=== PATIENT | female | born 1980 | race Caucasian/White ===

== ENCOUNTER 2022-09-10 23:44 | Inpatient (IN) | payer OTHER ==
[~2022-09-10] VITALS: Ht 172.7 cm; Wt 68.9 kg
--- NOTE | 2022-09-10 23:52 | NUR ---
PT BIBRA C/O FEVER SINCE THIS EVENING. PT NON VERBAL, HOT TO THE TOUCH, AND ON 2L O2 VIA NC. 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 PT HAS G TUBELEFT INDEX FINGER 22G IV INITIATED BY [facility]. PT ATTACHED TO MONITOR AND POX. WILL CONTINUE TO MONITOR.
--- NOTE | 2022-09-10 23:56 | NUR ---
COVID ANTIGEN SWAB COLLECTED AND SENT TO LAB
--- NOTE | 2022-09-10 23:56 | NUR ---
blood drawn and sent to lab
--- NOTE | 2022-09-10 23:56 | NUR ---
EMT AT PT'S BEDSIDE FOR EKG
--- NOTE | 2022-09-11 00:04 | NUR ---
DIATHERMY EQUIPMENT REPAIRER AT PT'S BEDSIDE
--- NOTE | 2022-09-11 00:05 | NUR ---
xray at bed side
[2022-09-11] MEDS ORDERED: ACETAMINOPHEN 650 MG/SUPP.RECT RC ONE ×2 (00:09→00:30)
--- NOTE | 2022-09-11 00:18 | NUR ---
URINE COLLECTED AND SENT TO LAB
[2022-09-11 00:26] LABS: BASOPHILS % (AUTO) 0.2 % (0.0-2.0); EOSINOPHILS % (AUTO) 2.3 % (0.0-6.0); HEMATOCRIT 36 % (33-45); HEMOGLOBIN 10.6 g/dL (11.5-14.8); LYMPHOCYTES # (AUTO) 3.5 K/uL (0.8-4.8); LYMPHOCYTES % (AUTO) 17.8 % (20.0-44.0); MEAN CORPUSCULAR HGB CONC 30 g/dl (31.0-36.0); MEAN CORPUSCULAR VOLUME 95 fL (82-100); MONOCYTES # (AUTO) 1.7 K/uL (0.1-1.30); MONOCYTES % (AUTO) 8.6 % (2.0-12.0); NEUTROPHILS # (AUTO) 13.9 K/uL (1.8-8.9); NEUTROPHILS % (AUTO) 71.1 % (43.0-81.0); PLATELET COUNT (AUTO) 173 K/uL (150-450); RED BLOOD CELL COUNT(AUTO) 3.75 MIL/uL (4.0-5.2); WHITE BLOOD COUNT (AUTO) 19.5 K/uL (4.3-11.0)
[2022-09-11] MEDS ORDERED: IV NS 0.9% 1,000 ML BAG IV ONE ×2 (00:30→02:00)
[2022-09-11 01:11] LABS: ALANINE AMINOTRANSFERASE 18 U/L (12-78); ALBUMIN 2.5 g/dL (3.4-5.0); ALKALINE PHOSPHATASE 184 U/L (46-116); ASPARTATE AMINOTRANSFERASE 18 U/L (15-37); BILIRUBIN,DIRECT 0.3 mg/dL (0.0-0.2); BILIRUBIN,TOTAL 0.5 mg/dL (0.2-1.0); CALCIUM, SERUM 9.1 mg/dL (8.5-10.1); CARBON DIOXIDE 29 mmol/L (21-32); CREATININE 1.4 mg/dL (0.6-1.3); GLUCOSE 126 mg/dL (74-106); TOTAL PROTEIN, SERUM 8.4 g/dL (6.4-8.2); UREA NITROGEN, BLOOD 64 mg/dL (7-18)
[2022-09-11 01:36] LABS: BILIRUBIN,URINE NEGATIVE (NEGATIVE); COLOR,URINE YELLOW (YELLOW); LEUKOCYTE ESTERASE ,URINE 2+ (NEGATIVE); NITRITE, URINE POSITIVE (NEGATIVE); PROTEIN,URINE 1+ mg/dl (NEGATIVE); UGLUCOSE NEGATIVE (NEGATIVE); UROBILINOGEN,URINE 0.2 EU/dL (0.2)
[2022-09-11 01:47] LABS: CHLORIDE 126 mmol/L (98-107)
[2022-09-11 01:48] LABS: SODIUM SERUM 163 mmol/L (136-145)
--- NOTE | 2022-09-11 01:48 | NUR ---
* CRITICAL LAB * SODIUM [address] TATO MACKENZIE AWARE & ORDERED IVF NS 1L;
[2022-09-11] MEDS ORDERED: CEFTRIAXONE 1GM BAG (ER ONLY) 50 ML IV ONE (01:57)
[2022-09-11] MEDS ORDERED: CEFTRIAXONE 1GM BAG (ER ONLY) 1 GM/50 ML PIGGYBACK IV ONE (02:00)
[2022-09-11 02:47] LABS: BACTERIA,URINE Many /HPF (None Seen); SQUAMOUS EPITHELIAL CELL,UR Few /HPF (None Seen); WBC,URINE 21-50 /HPF (0-3)
--- NOTE | 2022-09-11 02:55 | NUR ---
DR GODWIN DO ON PHONE CALL WITH DR. IQBAL FOR PANEL CALL
--- NOTE | 2022-09-11 03:02 | NUR ---
SPOKE TO CONTRACTOR BROOMCORN THRESHING LINDA WITH AUTH NUMBER: [id number]
--- NOTE | 2022-09-11 03:03 | NUR ---
ASSIGMENT: 322-1
[2022-09-11] MEDS ORDERED: CHOL100040 GT (03:19)
[2022-09-11] MEDS ORDERED: BACL10TA GT (03:19)
[2022-09-11] MEDS ORDERED: VIT500LI GT (03:19)
[2022-09-11] MEDS ORDERED: SENN-261 GT (03:19)
[2022-09-11] MEDS ORDERED: PREG50CA GT (03:19)
[2022-09-11] MEDS ORDERED: MULT-447 GT (03:19)
[2022-09-11] MEDS ORDERED: DOCU100C36 GT (03:19)
--- NOTE | 2022-09-11 03:27 | NUR ---
REPORT GIVEN TO ANI ON THIRD FLOOR
--- NOTE | 2022-09-11 03:31 | NUR ---
PT TRANSFERRED TO 322-1 VIA ACLS PROTOCOL. VSS.
--- NOTE | 2022-09-11 03:40 | NUR ---
FORENSIC PATHOLOGIST NOTES RECEIVED PATIENT FROM ER AT 0340 AM. PATIENT IS NON VERBAL. A/O TIMES 0. NO PAIN NOTED. NO SOB NOTED. NO DISTRESS NOTED. PATIENT IS PARAPLEGIC. UPPER EXTREMITIES NOTED WITH CONTRACTURE. PATIENT ON TELE MONITOR READING SR 109. VITAL SIGNS NOTED 111/64, P=110, RR=20, T=98.1 NO SOB NOTED. NO DISTRESS NOTED. ON O2 INHALATION VIA NASAL CANNULA , O2 SAT NOTED 97%. GTUBE INTACT. AWAITING FOR MD TO PUT THE ORDERS. OVERALL SKIN INTACT. NOTED RIGHT ELBOW SCAB. ALL NEEDS ATTENDED. ALL SAFETY MEASURES IN PLACE. BED LOCKED IN THE LOWEST POSITION. CALL LIGHT AND TABLE IN EASY REACH. SIDE RAILS UP TIMES 2. B3ED ALARM ON. HOB ELEVATED FOR ASPIRATION PRECAUTION. WILL CONTINUE TO MONITOR CLOSELY.
[2022-09-11 04:30] LABS: BAND % (MANUAL) 1 % (0.0-5.0); BASOPHILS % (MANUAL) 0 % (0.0-2.0); EOSINOPHILS % (MANUAL) 2 % (0-4); LYMPHOCYTES % (MANUAL) 18 % (16-48); MONOCYTES % (MANUAL) 6 % (0-11.0); NEUTROPHILS % (MANUAL) 73 (42-76)
[2022-09-11] MEDS ORDERED: MAG HYDROX/AL HYDROX/SIMETH 30 ML UDC PO PRN (04:30)
[2022-09-11] MEDS ORDERED: MAGNESIUM HYDROXIDE 30 ML UDC PO PRN (04:30)
[2022-09-11] MEDS ORDERED: ACETAMINOPHEN 325 MG TABLET PO PRN (04:30)
[2022-09-11] MEDS ORDERED: ONDANSETRON HCL/PF 4 MG/2 ML VIAL IVP PRN (04:30)
[2022-09-11] MEDS ORDERED: Z GUARD REMEDY 4 OZ OINT TP PRN (04:30)
[2022-09-11] MEDS ORDERED: MORPHINE SULFATE INJ 2 MG/ML DISP.SYRIN IV PRN (04:30)
[2022-09-11] MEDS ORDERED: VANCOMYCIN 1.25 GM in IV D5W 250 ML IV ONE ×2 (05:00→07:00)
[2022-09-11] MEDS ORDERED: ZOSYN IVPB 3.375 G in IV D5W 50ml IV ONE (05:00)
[2022-09-11] MEDS: IV D5W 1,000 ML IV SCH ×2 (05:16→15:09)
[2022-09-11] MEDS ORDERED: PIPERACILLIN /TAZOBACTAM 3.375 G VIAL IV ONE (05:27)
[2022-09-11 06:27] VITALS: BP 111/64
--- NOTE | 2022-09-11 06:30 | NUR ---
INSURANCE CLAIM REPRESENTATIVE CLOSING NOTES PATIENT SLEEPS IN BED. PATIENT IS NON VERBAL. A/O TIMES 0. NO PAIN NOTED. NO SOB NOTED. NO DISTRESS NOTED. PATIENT IS PARAPLEGIC. UPPER EXTREMITIES NOTED WITH CONTRACTURE. PATIENT ON TELE MONITOR READING ST 105. NO DISTRESS NOTED. ON O2 INHALATION VIA NASAL CANNULA , O2 SAT NOTED 96%. GTUBE INTACT. NO G- TUBE FEEDING ORDER YET. OVERALL SKIN INTACT. NOTED RIGHT ELBOW SCAB. ALL NEEDS ATTENDED. ALL SAFETY MEASURES IN PLACE. BED LOCKED IN THE LOWEST POSITION. CALL LIGHT AND TABLE IN EASY REACH. SIDE RAILS UP TIMES 2. BED ALARM ON. HOB ELEVATED FOR ASPIRATION PRECAUTION. WILL ENDORSE FOR NIKKO..
--- NOTE | 2022-09-11 06:47 | NUR ---
RN NOTES CALLED [facility] SPOKE WITH HELADIO AND GOT INFORMATION REGARDING PATIENT VACCINATIONS FROM HER.
[2022-09-11] MEDS ORDERED: VANCOMYCIN 1.5 GM in IV D5W 500 ML IV ONE (07:00)
--- NOTE | 2022-09-11 07:30 | NUR ---
HEAD WELL PULLER NOTES RECEIVED PATIENT IN BED , OBTUNDED , PATIENT IS NON VERBAL. A/O TIMES 0 . PATIENT IS PARAPLEGIC. UPPER EXTREMITIES NOTED WITH CONTRACTURE. PATIENT ON TELE MONITOR READING SR 109. NO SOB NOTED. NO DISTRESS NOTED. ON O2 INHALATION VIA NASAL CANNULA , O2 SAT NOTED 97%. GTUBE INTACT. AWAITING FOR NEW ORDERS . OVERALL SKIN INTACT. NOTED RIGHT ELBOW SCAB. . ALL SAFETY MEASURES IN PLACE. BED LOCKED IN THE LOWEST POSITION. CALL LIGHT AND TABLE IN EASY REACH. SIDE RAILS UP TIMES 2. B3ED ALARM ON. HOB ELEVATED FOR ASPIRATION PRECAUTION. WILL CONTINUE TO MONITOR CLOSELY.
[2022-09-11 08:00] VITALS: BP 119/65
--- NOTE | 2022-09-11 08:00 | NUR ---
RN NOTES WITH ORDER FOR MIDLINE INSERTION AND MIDLINE NURSE INSERTED WITH NO BLEEDING AND SWELLING NOTED . PATENT AND INTACT
--- NOTE | 2022-09-11 08:21 | NUR ---
WOUND CARE CONSULT: PT PRESENTS WITH LARGE ABDOMEN, RT ELBOW AND SACRAL SCARRING, PRESENT ON ADMISSION. RECOMMENDATIONS MADE FOR SKIN PROTECTION. DISCUSSED WITH NURSING STAFF. PT IS ON [facility] BED. IN AGREEMENT WITH PLAN OF CARE. Addendum: 09/11/22 at 0822 by LYNDA DELEON WNDNU Amended: Links added.
[2022-09-11] MEDS: PIPERACILLIN /TAZOBACTAM 3.375 G in IV D5W 100 ML IV SCH ×2 (10:28→18:01)
[2022-09-11] MEDS ORDERED: DEXTROSE 50%-WATER 50 ML DISP.SYRIN IV PRN (11:30)
[2022-09-11 12:00] VITALS: BP 101/42
[2022-09-11] MEDS ORDERED: MAG HYDROX/AL HYDROX/SIMETH 30 ML UDC NG PRN (12:24)
[2022-09-11] MEDS ORDERED: MAGNESIUM HYDROXIDE 30 ML UDC NG PRN (12:25)
[2022-09-11] MEDS ORDERED: ACETAMINOPHEN 650 MG/20.3 ML UDC PO PRN (12:30)
[2022-09-11] MEDS: ACETAMINOPHEN 650 MG/20.3 ML UDC NG PRN ×2 (12:52→21:06)
--- NOTE | 2022-09-11 13:00 | NUR ---
RN NOTES PATIENT NOTED WITH HR OF 162 AND V/S TAKEN TEMP WAS 101.5 AND BP 119/65 . NO SOB OR DISTRESS NOTED ,TYLENOL WAS GIVEN 650 MG VIA GT
[2022-09-11] MEDS: BLOOD SUGAR DIAGNOSTIC 1 EACH STRIP IN SCH ×3 (13:02→23:15)
[2022-09-11] MEDS: INSULIN REGULAR, HUMAN 100 UNIT/ML 3 ML VIAL SQ PRN ×3 (13:40→23:17)
[2022-09-11] MEDS ORDERED: JEVITY 1.2 CAL 1,000 ML BOTTLE GT PRN ×2 (14:00→16:00)
[2022-09-11] MEDS ORDERED: ACET-868 GT (14:45)
[2022-09-11] MEDS ORDERED: PROM118S5 GT (14:45)
[2022-09-11] MEDS ORDERED: NUTR150016 GT (14:45)
[2022-09-11 16:00] VITALS: BP 104/55
[2022-09-11] MEDS ORDERED: JEVITY 1.2 CAL 1,000 ML BOTTLE GT SCH (18:29)
--- NOTE | 2022-09-11 18:44 | NUR ---
LEATHER SCRAPER NOTES RECEIVED PATIENT IN BED , OBTUNDED , PATIENT IS NON VERBAL. A/O TIMES 0 . PATIENT IS PARAPLEGIC. UPPER EXTREMITIES NOTED WITH CONTRACTURE. PATIENT ON TELE MONITOR READING ST 112. NO SOB NOTED. NO DISTRESS NOTED. ON O2 INHALATION VIA NASAL CANNULA , O2 SAT NOTED 97%. GTUBE INTACT WITH JEVITY 1.2 @60 ML/H FOR 24 HOURS AND TOLERATED WELL . OVERALL SKIN INTACT. NOTED RIGHT ELBOW SCAB.APPLIED WITH MEPILEX . ROXANN MIDLINE AND WITH D5W @30ML/HOUR . ALL SAFETY MEASURES IN PLACE. BED LOCKED IN THE LOWEST POSITION. CALL LIGHT AND TABLE IN EASY REACH. SIDE RAILS UP TIMES 2. B3ED ALARM ON. HOB ELEVATED FOR ASPIRATION PRECAUTION. ENDORSED TO NEXT SHIFT
--- NOTE | 2022-09-11 19:30 | NUR ---
CAR LUBRICATOR OPENING NOTE RECEIVED PT AWAKE IN BED. OBTUNDED. PT ON O2 @ 2LPM VIA NC, TOLERATING WELL. NO SOB OR S/S OF RESPIRATORY DISTRESS. BREATHING EVEN AND UNLABORED. ON EXTERNAL TRANSIT MIXER DRIVER READING ST 117 BPM. WITH GTUBE RUNNING JEVITY 1.2 @ 60 ML/HR. IV ACCESS ROXANN ML, INTACT AND PATENT, RUNNING ZOSYN @ 25 ML/HR. SAFETY PRECAUTIONS IN PLACE. BED IN LOWEST LOCKED POSITION, HOB ELEVATED, SIDE RAILS UP X3, AND CALL LIGHT AND TABLE WITHIN REACH. ALL NEEDS MET AT THIS TIME.
[2022-09-11 20:00] VITALS: BP 107/59
[2022-09-11] MEDS ORDERED: VANCOMYCIN 1 GM in IV D5W 250 ML IV SCH (21:00)
--- NOTE | 2022-09-11 21:08 | NUR ---
RN NOTE PT NOTED WITH FEVER OF 101.6 AT THIS TIME. ADMINISTERED TYLENOL 650 MG VIA GTUBE ORDERED FOR FEVER. APPLIED COOLING MEASURES. ALL NEEDS MET AT THIS TIME.
--- NOTE | 2022-09-11 21:15 | NUR ---
RN NOTE PT NOTED TO STILL BE RUNNING ZOSYN @ 25 ML/HR. CALLED [facility] AND SPOKE WITH PEPE WHO STATED IT WAS OKAY TO RUN THE ZOSYN AND THE VANCO AT THE SAME TIME. CHARGE NURSE VERONICA ENGLISH.
[2022-09-12] VITALS: BP 111/55
[2022-09-12] MEDS: PIPERACILLIN /TAZOBACTAM 3.375 G in IV D5W 100 ML IV SCH ×3 (01:29→17:01)
[2022-09-12 04:00] VITALS: BP 107/73
[2022-09-12] MEDS: BLOOD SUGAR DIAGNOSTIC 1 EACH STRIP IN SCH ×3 (05:40→17:02)
[2022-09-12 06:37] LABS: BASOPHILS % (AUTO) 0.3 % (0.0-2.0); EOSINOPHILS % (AUTO) 2.3 % (0.0-6.0); HEMATOCRIT 30 % (33-45); HEMOGLOBIN 9.1 g/dL (11.5-14.8); LYMPHOCYTES # (AUTO) 1.9 K/uL (0.8-4.8); LYMPHOCYTES % (AUTO) 12.6 % (20.0-44.0); MEAN CORPUSCULAR HGB CONC 30 g/dl (31.0-36.0); MEAN CORPUSCULAR VOLUME 95 fL (82-100); MONOCYTES % (AUTO) 6.4 % (2.0-12.0); NEUTROPHILS # (AUTO) 11.8 K/uL (1.8-8.9); NEUTROPHILS % (AUTO) 78.4 % (43.0-81.0); PLATELET COUNT (AUTO) 175 K/uL (150-450); RED BLOOD CELL COUNT(AUTO) 3.18 MIL/uL (4.0-5.2)
--- NOTE | 2022-09-12 06:49 | NUR ---
FRONT OFFICE ADMINISTRATOR CLOSING NOTE PT AWAKE IN BED. OBTUNDED. PT ON O2 @ 2LPM VIA NC, TOLERATING WELL. NO SOB OR S/S OF RESPIRATORY DISTRESS. BREATHING EVEN AND UNLABORED. ON EXTERNAL PIECER READING ST 123 BPM. WITH GTUBE RUNNING JEVITY 1.2 @ 60 ML/HR, NO RESIDUAL, FLUSHED WITH 200 CC Q6H. IV ACCESS ROXANN ML, INTACT AND PATENT, RUNNING D5W @ 30 ML/HR. ALL DUE MEDS GIVEN ORDERED. KEPT CLEAN AND DRY. SAFETY PRECAUTIONS IN PLACE AT ALL TIMES. BED IN LOWEST LOCKED POSITION, HOB ELEVATED, SIDE RAILS UP X3, AND CALL LIGHT AND TABLE WITHIN REACH. ALL NEEDS MET AT THIS TIME AND WILL ENDORSE TO ONCOMING NURSE FOR NIKKO.
[2022-09-12 07:14] LABS: CALCIUM, SERUM 7.6 mg/dL (8.5-10.1); CREATININE 1.2 mg/dL (0.6-1.3); MAGNESIUM 2.8 mg/dL (1.8-2.4); PHOSPHORUS 4.3 mg/dL (2.5-4.9); POTASSIUM 3.8 mmol/L (3.5-5.1)
[2022-09-12 07:32] LABS: BILIRUBIN,DIRECT 0.3 mg/dL (0.0-0.2); BILIRUBIN,TOTAL 0.5 mg/dL (0.2-1.0); TOTAL PROTEIN, SERUM 6.8 g/dL (6.4-8.2)
--- NOTE | 2022-09-12 07:40 | NUR ---
MACHINE STUFFER AUTOMATIC OPENING NOTE RECEIVED PT AWAKE IN BED. OBTUNDED. PT ON O2 @ 2LPM VIA NC, TOLERATING WELL. NO SOB OR S/S OF RESPIRATORY DISTRESS. BREATHING EVEN AND UNLABORED. ON EXTERNAL SOLE STAINER READING ST 115 BPM. WITH GTUBE RUNNING JEVITY 1.2 @ 60 ML/HR. IV ACCESS ROXANN ML, INTACT AND PATENT, RUNNING D5W @ 30 ML/HR. SAFETY PRECAUTIONS IN PLACE. BED IN LOWEST LOCKED POSITION, HOB ELEVATED, SIDE RAILS UP X3, AND CALL LIGHT AND TABLE WITHIN REACH. WILL CONTINUE TO MONITOR.
[2022-09-12 08:00] VITALS: BP 104/62
[2022-09-12] MEDS: VANCOMYCIN 1 GM in IV D5W 250ml IV SCH ×2 (09:08→21:08)
[2022-09-12] MEDS ORDERED: GLUCERNA 1.2 1,000 ML BOTTLE NG PRN (09:30)
[2022-09-12 12:00] VITALS: BP_SYST 117; BP_SYST 140; BP_DIAS 67; BP_DIAS 77
[2022-09-12 12:09] LABS: BAND % (MANUAL) 10 % (0.0-5.0); EOSINOPHILS % (MANUAL) 1 % (0-4); LYMPHOCYTES % (MANUAL) 6 % (16-48); MONOCYTES % (MANUAL) 10 % (0-11.0); NEUTROPHILS % (MANUAL) 73 (42-76)
--- NOTE | 2022-09-12 13:45 | NUR ---
RN NOTE RECEIVED BLOOD CULTURE LAB RESULT @8187, GRAM POSITIVE, DR STEVENS AWARE. WILL CONTINUE TO MONITOR PT.
[2022-09-12 16:00] VITALS: BP 107/59
[2022-09-12] MEDS ORDERED: GLUCERNA 1.2 1,000 ML BOTTLE GT PRN (17:00)
--- NOTE | 2022-09-12 18:32 | NUR ---
DIGITAL IMAGER CLOSING NOTE PT AWAKE IN BED. OBTUNDED. PT ON O2 @ 2LPM VIA NC, TOLERATING WELL. NO SOB OR S/S OF RESPIRATORY DISTRESS. BREATHING EVEN AND UNLABORED. ON EXTERNAL LOCATION MANAGER READING ST 118 BPM. WITH GTUBE RUNNING GLUCERNA 1.2 @ 60 ML/HR, NO RESIDUAL, FLUSHED WITH 200 CC Q6H. IV ACCESS ROXANN ML, INTACT AND PATENT, RUNNING ZOSYN @25ML/HR. ALL DUE MEDS GIVEN ORDERED. KEPT PT CLEAN AND DRY. REPOSITIONED Q2H. SAFETY PRECAUTIONS IN PLACE AT ALL TIMES. BED IN LOWEST LOCKED POSITION, HOB ELEVATED, SIDE RAILS UP X3, AND CALL LIGHT AND TABLE WITHIN REACH. ALL NEEDS MET AT THIS TIME AND WILL ENDORSE TO ONCOMING NURSE FOR NIKKO.
--- NOTE | 2022-09-12 19:30 | NUR ---
RN NOTES: RECEIVED AWAKE ON BED,OBTUNDED,NON VERBAL, ON TELE MONITOR ST-123, NO SIGN OF PAIN OR DISCOMFORT AT THIS TIME, INCONTINENT B/B, WITH O2 AT 2L/MIN VIA NC, NO SIGN OF RESPIRATORY DISTRESS NOTED, KEPT ON CLOSE WATCH, IV CANNULA ON ROXANN-ML WITH IVF OF D5%W AT 30 ML/HR, G-TUBE INTACT, FEEDING ONGOING GLUCERNA 1.2 AT 60 ML/HR, ASPIRATION PRECAUTION OBSERVED, ON BS Q 6H,ON SLIDING SCALE, FLUSHING OF 200CC Q 6 HOURLY DUE AT 0000, SAFETY PRECAUTION OBSERVED, KEPT CALL LIGHT WITHIN EASY REACH, BED LOW AND LOCKED. -PER RN ENDORSEMENT (+) BLOOD C/S DOCTOR WAS NOTIFIED.
[2022-09-12 20:00] VITALS: BP 121/70
--- NOTE | 2022-09-12 21:33 | NUR ---
RN NOTES: AROUND 2119 SAW VANCO TROUGH RESULT=29, VANCO IV WAS STARTED AROUND 10 MINUTES AGO, INFUSION STOP IMMEDIATELY , CN NOTIFIED, THEN CALLED PHARMACY SPOKE WITH PEPE, ORDERED TO DO VANCO TROUGH AGAIN AT 0800 JUST TO CLEAR OUT THE DOSE AND START A NEW ORDER FROM [facility] TO ADJUST THE DOSE AND FREQUENCY.
--- NOTE | 2022-09-12 21:55 | NUR ---
RN NOTES: WARM TO TOUCH, 1999-99.8, SPONGE BATH RENDERED. COOL DOWN. 2156 -RE-CHECK AGAIN STILL 99.8, NOTED WITH FACIAL GRIMACE DURING REPOSITIONING, PRN GIVEN.
[2022-09-12] MEDS: ACETAMINOPHEN 650 MG/20.3 ML UDC NG PRN (22:01)
--- NOTE | 2022-09-12 22:20 | NUR ---
RN NOTES; G-TUBE SITE CHECKED, ASPIRATE >60 ML, STOP FEEDING TEMPORARILY, CN NOTIFIED.KEPT ON HIGH FOWLERS POSITION. Addendum: 09/12/22 at 2223 by ROWAN WILDE RN ADDED NOTES; ST-122,WARM TO TOUCH, SPONGE BATH RENDERED.
[2022-09-13] VITALS: BP 105/62
[2022-09-13] MEDS: BLOOD SUGAR DIAGNOSTIC 1 EACH STRIP IN SCH ×5 (00:38→23:34)
--- NOTE | 2022-09-13 00:38 | NUR ---
RN NOTES: 0000-BLOOD SUGAR CHECKED-119, NO INSULIN PER SCALE, WILL CONTINUE TO MONITOR FOR ANY SIGN OF HYPER/HYPOGLYCEMIA 0010-SHE PEE LARGE AMOUNT OF URINE, REPOSITION, CLEAN AND CHANGE, DRESSING DONE ON G-TUBE SITE AND SACRAL AREA, DRESSING CHANGE. 0020-CHECK G-TUBE PATENCY, ASPIRATE 50ML, FEEDING STILL ON HOLD, GENTLE HYDRATION GIVEN 200 ML OF FLUSHING, GIVEN WITH INTERVALS, KEPT IN HIGH FOWLERS POSITION, ASPIRATION PRECAUTION OBSERVED, TOLERATED.
[2022-09-13] MEDS: PIPERACILLIN /TAZOBACTAM 3.375 G in IV D5W 100 ML IV SCH ×3 (02:50→17:14)
[2022-09-13 04:00] VITALS: BP 122/66
--- NOTE | 2022-09-13 04:06 | NUR ---
RN NOTES: TURNING AND REPOSITIONING DONE, CHECK RESIDUAL >50CC.
[2022-09-13 06:02] LABS: CALCIUM, SERUM 8.4 mg/dL (8.5-10.1); CREATININE 1.1 mg/dL (0.6-1.3); POTASSIUM 4.3 mmol/L (3.5-5.1)
--- NOTE | 2022-09-13 07:29 | NUR ---
RESAW OPERATOR OPENING NOTE RECEIVED PT WITH OPEN EYES, NON-VERBAL, OBTUNDED. PT IS ON O2 AT 2L/MIN VIA NASAL CANNULA, TOLERATING WELL. NO SOB NOTED. NOT IN ANY SIGN OF RESPIRATORY DISTRESS. ON TELE COMMERCIAL INTELLIGENCE MANAGER WITH CURRENT READING OF SINUS TACH, HR 113. NO SIGNS CARDIAC DISTRESS NOTED AT THIS TIME. IV ACCESS ON ROXANN MIDLINE WITH D5W INFUSING AT 30ML/HR. SAFETY MEASURES IN PLACE: BED IN LOWEST AND LOCKED POSITION, KEPT HOB ELEVATED AT ALL TIMES, SIDE RAILS UP X2, AND CALL LIGHT WITHIN REACH. WILL CONTINUE TO MONITOR PT.
--- NOTE | 2022-09-13 07:49 | NUR ---
RN NOTES: RESIDUAL MORE >50 ML, FLUSHING OF 200 ML GIVEN SLOWLY AND GENTLY TOLERATED, KEPT IN HIGH FOWLERS POSITION, BLOOD SUGAR CHECK-99,IVF OF D5% AT 30 ML/HR CONTINUE, FOR VANCO TROUGH AND BMP THIS MORNING, ASPIRATION PRECAUTION OBSERVED, ENDORSED FOR CONTINUITY OF CARE.
[2022-09-13 08:00] VITALS: BP 105/65
[2022-09-13] MEDS: INSULIN REGULAR, HUMAN 100 UNIT/ML 3 ML VIAL SQ PRN ×3 (12:19→23:35)
[2022-09-13 16:00] VITALS: BP 120/65
[2022-09-13] MEDS: IV D5W 1,000 ML IV PRN (17:43)
[2022-09-13] MEDS: GLUCERNA 1.2 1,000 ML BOTTLE NG PRN (17:43)
--- NOTE | 2022-09-13 19:07 | NUR ---
SPECIAL DIET COOK CLOSING NOTE PT WITH OPEN EYES, NON-VERBAL, OBTUNDED. PT IS ON O2 AT 2L/MIN VIA NASAL CANNULA, TOLERATING WELL. NO SOB NOTED. NOT IN ANY SIGN OF RESPIRATORY DISTRESS. ON TELE INTERNATIONAL ORGANIZER WITH CURRENT READING OF SINUS TACH, HR 110. NO SIGNS CARDIAC DISTRESS NOTED AT THIS TIME. IV ACCESS ON ROXANN MIDLINE WITH D5W INFUSING AT 30ML/HR. ALL NEEDS ATTENDED. KEPT CLEAN AND COMFORTABLE AT ALL TIMES. SAFETY MEASURES IN PLACE: BED IN LOWEST AND LOCKED POSITION, KEPT HOB ELEVATED AT ALL TIMES, SIDE RAILS UP X2, AND CALL LIGHT WITHIN REACH. WILL ENDORSE TO ACCESS CONTROL SPECIALIST NURSE FOR NIKKO.
[2022-09-13 20:00] VITALS: BP 106/72
--- NOTE | 2022-09-13 20:15 | NUR ---
RN OPENING NOTES PT WITH OPEN EYES, OBTUNDED. PT IS ON NASAL CANNULA WITH 2L O2, TOLERATING WELL WITH NO RESPIRATORY DISTRESS NOTED. PT GASTRIC TUBE IN PLACE, FEEDING WAS DISCONTINUED DUE TO RESIDUAL OF >50ML. PT IV ACCESS ON ROXANN MIDLINE RUNNING D5W @ 30 ML/HR, PATENT, INTACT AND FLUSHES WELL WITH NO S/SX OF INFILTRATION 2 SITE NOTED. PT HAS EXTERNAL CUPOLA OPERATOR INSULATION IN PLACE. SAFETY MEASURES IN PLACE. BED PLACE IN ITS LOWEST AND LOCKED POSITION, SIDE RAILS UP X 2, BEDSIDE TABLE AND CALL LIGHT IS EASY REACH. BED ALARM IS ON. WILL CONTINUE TO MONITOR PATIENT ACCORDINGLY. Addendum: 09/13/22 at 2016 by BRIGIDA PHILLIPS RN OPENING NOTES @1900
[2022-09-13 20:19] VITALS: BP 106/72
[2022-09-13] MEDS: VANCOMYCIN 1 GM in IV D5W 250ml IV SCH (21:17)
--- NOTE | 2022-09-13 21:53 | NUR ---
GT IS IN PLACE WITH RESIDUAL OF >50ML. GT FEEDING HELD. CHARGE NURSE ON DUTY IS INFORMED AND NOTIFIED.
--- NOTE | 2022-09-13 23:27 | NUR ---
FEEDING RESUME @ 20 MLS/HR. CHARGE NURSE ON DUTY INFORMED AND NOTIFIED. WILL CONTINUE TO MONITOR PATIENT.
[2022-09-14] VITALS (7 sets, daily range): BP systolic 92–112; BP diastolic 60–72
[2022-09-14] MEDS: PIPERACILLIN /TAZOBACTAM 3.375 G in IV D5W 100 ML IV SCH ×3 (04:14→18:33)
[2022-09-14 06:32] LABS: CALCIUM, SERUM 8.7 mg/dL (8.5-10.1); POTASSIUM 3.6 mmol/L (3.5-5.1)
[2022-09-14] MEDS: INSULIN REGULAR, HUMAN 100 UNIT/ML 3 ML VIAL SQ PRN ×4 (06:46→23:39)
[2022-09-14] MEDS: BLOOD SUGAR DIAGNOSTIC 1 EACH STRIP IN SCH ×4 (06:46→23:39)
--- NOTE | 2022-09-14 06:47 | NUR ---
INSULIN REGULAR HELD D/T BLODD GLUCOSE OF 109.
--- NOTE | 2022-09-14 07:30 | NUR ---
SURGICAL SALES REPRESENTATIVE OPENING NOTE RECEIVED PT WITH OPEN EYES, NON-VERBAL, OBTUNDED. PT IS ON O2 AT 2L/MIN VIA NASAL CANNULA, TOLERATING WELL. NO SOB NOTED. NOT IN ANY SIGN OF RESPIRATORY DISTRESS. ON TELE STUFFING MACHINE OPERATOR WITH CURRENT READING OF SINUS RHYTHM, HR 96. NO SIGNS CARDIAC DISTRESS NOTED AT THIS TIME. IV ACCESS ON ROXANN MIDLINE WITH D5W INFUSING AT 30ML/HR. GTUBE IN PLACE WITH FEEDING RUNNING. SAFETY MEASURES IN PLACE: BED IN LOWEST AND LOCKED POSITION, KEPT HOB ELEVATED AT ALL TIMES, SIDE RAILS UP X2, AND CALL LIGHT WITHIN REACH. WILL CONTINUE TO MONITOR PT.
--- NOTE | 2022-09-14 07:40 | NUR ---
RN CLOSING NOTES PT IS SLEEPING COMFORTABLY IN BED. PT IS OBTUNDED. NO S/SX OF RESPIRATORY DISTRESS NOTED. ON TELEMONITOR WITH CURRENT READING OF SINUS RHYTHM HR OF 93. IV SITE ON ROXANN ML #20G RUNNING D5w @ 30 MLS/HR, INTACT, PATENT AND FLUSHES WELL WITH NO S/SX OF INFILTRATION. PT GTUBE IS IN PLACE RUNNING FEEDING OF GLUCERNA @ 20 MLS/HR. PT IS KEPT CLEAN, DRY AND COMFORTABLE. MEDICATIONS ADMINISTERED ACCORDINGLY PER MD'S ORDER. SAFETY MEASURES MAINTAINED. BEDS AT ITS LOWEST AND LOCKED POSITION. SIDE RAILS UP X 3. BEDSIDE TABLE AND CALL LIGHT IS EASY REACH, BED ALARM IS ON. WILL ENDORSE TO THE NEXT SHIFT FOR CONTINUITY OF CARE.
--- NOTE | 2022-09-14 16:39 | NUR ---
RN NOTE ASSESSED PT'S RESIDUAL VIA GTUBE AND NOTED PT WITH 140 CC RESIDUAL. GTUBE FEEDING HELD AT THIS TIME. KEPT PT'S HOB ELEVATED AT ALL TIMES. CALLED ANTOINE STEVENS NP AND MADE HIM AWARE THAT PT HAS BEEN HAVING EPISODES OF RESIDUAL OVER 100CC SINCE YESTERDAY. PER ANTOINE TO START PT ON REGLAN 10MG IV Q6HRS PRN. ORDERS CARRIED OUT.
[2022-09-14] MEDS: METOCLOPRAMIDE HCL 10 MG/2 ML VIAL IV SCH ×2 (18:32→23:17)
--- NOTE | 2022-09-14 19:00 | NUR ---
RN OPENING NOTES PT EYES OPEN. PT IS OBTUNDED. PT PT ON 02 INHALATION VIA NASAL CANNULA @2LPM, TOLERATING WELL, BREATHING EVEN AND UNLABORED. @ THIS TIME. PT IV ACCESS PRESENT ON RIGHT UPPER ARM MIDLINE RUNNING D5w @ 30 MLS/HR, PATENT, INTACT, FLUSHES WELL WITH NO S & SX OF INFILTRATION @ SITE NOTED. PT GTUBE IN PLACE RUNNING GLUCERNA @ 20 MLS/HR. PT HAS A DIRECTOR OF ONLINE EDUCATION IN PLACE WITH A CURRENT READING OF SINUS TACHYCARDIA, HR OF 119 BPM. SAFETY MEASURES IN PLACE WITH BED AT ITS LOWEST & LOCKED POSITION, SIDE RAILS UP X 2, BEDSIDE TABLE & CALL LIGHT IS EASY REACH. BED ALARM IS ON. WILL CONTINUE TO MONITOR PT ACCORDINGLY.
--- NOTE | 2022-09-14 19:30 | NUR ---
TECHNICAL SPECIALIST CYTOLOGY CLOSING NOTE PT WITH OPEN EYES, NON-VERBAL, OBTUNDED. PT IS ON O2 AT 2L/MIN VIA NASAL CANNULA, TOLERATING WELL. NO SOB NOTED. NOT IN ANY SIGN OF RESPIRATORY DISTRESS. ON TELE COMPUTER EDUCATION TEACHER WITH CURRENT READING OF SINUS RHYTHM, HR 98. NO SIGNS CARDIAC DISTRESS NOTED AT THIS TIME. IV ACCESS ON ROXANN MIDLINE WITH D5W INFUSING AT 30ML/HR. ALL NEEDS ATTENDED. KEPT CLEAN AND COMFORTABLE AT ALL TIMES. SAFETY MEASURES IN PLACE: BED IN LOWEST AND LOCKED POSITION, KEPT HOB ELEVATED AT ALL TIMES, SIDE RAILS UP X2, AND CALL LIGHT WITHIN REACH. ENDORSED TO STEEL BARREL REAMER NURSE FOR NIKKO.
[2022-09-14] MEDS: VANCOMYCIN 1 GM in IV D5W 250ml IV SCH (20:38)
--- NOTE | 2022-09-14 23:40 | NUR ---
INSULIN REGULAR HELD D/T TO BLOOD GLUCOSE OF 111.
--- NOTE | 2022-09-14 23:41 | NUR ---
CHANGE WOUND DRESSING @ LEFT ELBOW WITH ZEROFORM AND OPTIFOAM PATCH. Addendum: 09/14/22 at 1785 by BRIGIDA PHILLIPS RN ERROR ON WOUND LOCATION: CHANGE WOUND DRESSING ON RIGHT ELBOW USING ZEROFORM AND OPTIFOAM PATCH.
--- NOTE | 2022-09-14 23:45 | NUR ---
PHOTO TAKEN OF RIGHT ELBOW WOUND AND SACRAL SCAR. FILED PHOTO ON PT CHART
[2022-09-15] MEDS: PIPERACILLIN /TAZOBACTAM 3.375 G in IV D5W 100 ML IV SCH (01:00)
[2022-09-15 01:02] VITALS: BP 92/59
[2022-09-15 05:00] VITALS: BP 125/71
[2022-09-15] MEDS: METOCLOPRAMIDE HCL 10 MG/2 ML VIAL IV SCH ×4 (05:04→23:31)
[2022-09-15] MEDS: BLOOD SUGAR DIAGNOSTIC 1 EACH STRIP IN SCH ×4 (05:28→23:29)
[2022-09-15] MEDS: INSULIN REGULAR, HUMAN 100 UNIT/ML 3 ML VIAL SQ PRN (05:29)
--- NOTE | 2022-09-15 05:30 | NUR ---
INSULIN REGULAR HELD D/T BLOOD GLUCOSE OF 116.
[2022-09-15 05:57] LABS: BASOPHILS % (AUTO) 0.5 % (0.0-2.0); HEMATOCRIT 28 % (33-45); HEMOGLOBIN 8.6 g/dL (11.5-14.8); LYMPHOCYTES # (AUTO) 1.5 K/uL (0.8-4.8); LYMPHOCYTES % (AUTO) 18.5 % (20.0-44.0); MEAN CORPUSCULAR HGB CONC 31 g/dl (31.0-36.0); MEAN CORPUSCULAR VOLUME 93 fL (82-100); MONOCYTES # (AUTO) 0.7 K/uL (0.1-1.30); MONOCYTES % (AUTO) 8.9 % (2.0-12.0); NEUTROPHILS # (AUTO) 5.5 K/uL (1.8-8.9); NEUTROPHILS % (AUTO) 69.1 % (43.0-81.0); PLATELET COUNT (AUTO) 247 K/uL (150-450); RED BLOOD CELL COUNT(AUTO) 2.99 MIL/uL (4.0-5.2)
[2022-09-15 06:18] LABS: CALCIUM, SERUM 8.5 mg/dL (8.5-10.1); CREATININE 1.1 mg/dL (0.6-1.3); POTASSIUM 3.4 mmol/L (3.5-5.1)
--- NOTE | 2022-09-15 06:30 | NUR ---
RN CLOSING NOTES PT EYES IS OPEN. PT IS OBTUNDED. NO S & SX OF RESPIRATORY DISTRESS. PT ON 02 INHALATION VIA NASAL CANNULA O2 @2LPM, TOLERATING WELL, BREATHING EVEN AND UNLABORED @ THIS TIME. PT IV ACCESS PRESENT ON ROXANN ML RUNNING D5w @ 30 MLS/HR, PATENT, INTACT, FLUSHES WELL WITH NO S & SX OF INFILTRATION @ SITE NOTED. PT GTUBE IS IN PLACE RUNNING GLUCERNA @20 MLS/HR. PT HAS A CREDIT ANALYSIS MANAGER IN PLACE WITH A CURRENT READING OF SINUS TACHY, HR 109 BPM. MEDICATIONS ADMINISTERED ACCORDINGLY PER MD'S ORDER. SAFETY MEASURES IN PLACE WITH BED AT ITS LOWEST & LOCKED POSITION, SIDE RAILS UP X 2, BEDISDE TABLE & CALL LIGHT IS EASY REACH. BED ALARM IS ON. WILL ENDORSE TO THE NEXT SHIFT FOR CONTINUITY OF CARE.
--- NOTE | 2022-09-15 07:38 | NUR ---
RESIDENTIAL INSTALLER OPENING NOTE RECEIVED PT WITH OPEN EYES, NON-VERBAL, OBTUNDED. PT IS ON O2 AT 3 L/MIN VIA NASAL CANNULA, TOLERATING WELL. NO SOB NOTED. NOT IN ANY SIGN OF RESPIRATORY DISTRESS. ON TELE COCOA BEAN ROASTER WITH CURRENT READING OF SINUS TACHYCARSDIA RHYTHM, HR 110S. NO SIGNS CARDIAC DISTRESS NOTED AT THIS TIME. IV ACCESS ON ROXANN MIDLINE WITH D5W INFUSING AT 30ML/HR. GTUBE IN PLACE WITH FEEDING INFUSING AT 20 MlS/HR. SAFETY MEASURES IN PLACE: BED IN LOWEST AND LOCKED POSITION, KEPT HOB ELEVATED AT ALL TIMES, SIDE RAILS UP X2, AND CALL LIGHT WITHIN REACH. WILL CONTINUE TO MONITOR PT AND CARE FOR PATIENT PER HOSPITALIST'S POC.
[2022-09-15 08:00] VITALS: BP 149/97
[2022-09-15] MEDS: MEROPENEM 1 G in IV NS 0.9% 100 ML IV SCH ×3 (08:50→21:41)
[2022-09-15] MEDS: IV D5W 1,000 ML IV PRN (09:14)
[2022-09-15] MEDS ORDERED: POTASSIUM CHLORIDE 20 MEQ POWDER PACKET NG SCH (09:30)
[2022-09-15 12:03] VITALS: BP 90/46
[2022-09-15 16:03] VITALS: BP 95/63
--- NOTE | 2022-09-15 18:54 | NUR ---
CRUTCHER HELPER CLOSING NOTE (DAYSHIFT) PT WITH OPEN EYES, NON-VERBAL, OBTUNDED. PT IS ON O2 AT 2L/MIN VIA NASAL CANNULA, TOLERATING WELL. NO SOB NOTED. NOT IN ANY SIGN OF RESPIRATORY DISTRESS. ON TELE RESIDENTIAL SALES CONSULTANT WITH CURRENT READING OF SINUS RHYTHM, HR 92. NO SIGNS CARDIAC DISTRESS NOTED AT THIS TIME. IV ACCESS ON ROXANN MIDLINE WITH D5W INFUSING AT 30ML/HR. ALL NEEDS ATTENDED. KEPT CLEAN AND COMFORTABLE AT ALL TIMES. TURNED Q 2 HOURS. HAS LOOSE LIQUID BM X 2. GRADUALLY INCREASING TUBE FEED RATE TOWARD GOAL TOLERATED BY PATIENT. SAFETY MEASURES IN PLACE: BED IN LOWEST AND LOCKED POSITION, KEPT HOB ELEVATED AT ALL TIMES, SIDE RAILS UP X2, AND CALL LIGHT WITHIN REACH. ENDORSED TO ADJUNCT FACULTY FOR MEDICAL TERMINOLOGY NURSE, LINH GUSTAFSON, FOR NIKKO.
--- NOTE | 2022-09-15 19:00 | NUR ---
BUSINESS EDITOR OPENING NOTE PATIENT IS LYING IN BED WITH ARMS AND LEGS CONTRACTED. SHE IS NON-VERBAL, NOT RESPONDING TO HER NAME. PT IS ON 3 LPM OF OXYGEN VIA NC, TOLERATING WELL. NO S/S OF SOB OR DISTRESS. PT IS ON EXTERNAL PICC NURSE, ON THE MONITOR, SHE IS ST WITH HR AT 120S. IV ACCESS IS AT HER R UA MIDLINE, RUNNING D5W @ 30 ML/HR. IV IS PATENT AND INTACT. PT HAS G-TUBE, CHECKED THE PLACEMENT; G-TUBE IS PATENT, IN PLACE AND INTACT.CHECKED THE RESIDUAL, RECEIVED ZERO RESIDUAL. FLUSHED THE G-TUBE WITH 200 ML OF FREE WATER. SAFETY MEASURES IN PLACE: HOB REMAINS ABOVE 45 DEGREE; BED IN LOWEST AND LOCKED POSITION; SIDE RAILS UP X2, CALL LIGHT AND TABLE ARE WITHIN REACH. WILL CONTINUE MONITORING THE PT AND PROVIDE THE CARE PT NEEDS.
--- NOTE | 2022-09-15 19:05 | NUR ---
SURVEILLANCE INVESTIGATOR NOTE G-TUBE IS RUNNING GLUCERNA 1.2 @ 35 ML/HR UPON RECEIVING THE PT FROM DAY SHIFT.
[2022-09-15 20:00] VITALS: BP 99/55
--- NOTE | 2022-09-15 23:46 | NUR ---
COMMERCIAL LAWN SPECIALIST NOTE PT BS IS 82. GIVE 100 ML OF APPLE JUICE THROUGH G-TUBE.
[2022-09-16] VITALS: BP 97/64
--- NOTE | 2022-09-16 00:30 | NUR ---
ARSON AND BOMB INVESTIGATOR NOTE INCREASED PT'S G-TUBE FEEDING RATE TO 45 ML/HR. WILL MONITOR THE RESIDUAL TO SEE WHETHER THE PT IS ABLE TO TOLERATE THIS FEEDING RATE.
[2022-09-16 04:00] VITALS: BP 98/69
[2022-09-16] MEDS: MEROPENEM 1 G in IV NS 0.9% 100 ML IV SCH ×3 (04:07→20:49)
[2022-09-16] MEDS: GLUCERNA 1.2 1,000 ML BOTTLE NG PRN (05:07)
[2022-09-16] MEDS: METOCLOPRAMIDE HCL 10 MG/2 ML VIAL IV SCH ×4 (05:29→18:26)
[2022-09-16] MEDS: BLOOD SUGAR DIAGNOSTIC 1 EACH STRIP IN SCH ×3 (05:30→18:26)
--- NOTE | 2022-09-16 06:51 | NUR ---
PHARMACEUTICAL SERVICE REPRESENTATIVE CLOSING NOTE PATIENT IS LYING IN BED WITH ARMS AND LEGS CONTRACTED. SHE IS NON-VERBAL, NOT RESPONDING TO HER NAME. PT IS ON 3 LPM OF OXYGEN VIA NC, TOLERATING WELL. NO S/S OF SOB OR DISTRESS. PT IS ON EXTERNAL ESTATE ADMINISTRATOR, ON THE MONITOR, SHE IS ST WITH HR AT 120S. IV ACCESS IS AT HER R UA MIDLINE, RUNNING D5W @ 30 ML/HR. IV IS PATENT AND INTACT. PT'S G-TUBE IS PATENT, IN PLACE AND INTACT.CHECKED THE RESIDUAL, RECEIVED ZERO RESIDUAL. FLUSHED THE G-TUBE WITH 200 ML OF FREE WATER Q 6 HRS DURING THE SHIFT. PT IS ON G-TUBE FEEDING GLUCERNA 1.2 @45 ML/HR/ TOLERATED WELL. SAFETY MEASURES IN PLACE: HOB REMAINS ABOVE 45 DEGREE; BED IN LOWEST AND LOCKED POSITION; SIDE RAILS UP X2, CALL LIGHT AND TABLE ARE WITHIN REACH. WILL ENDORSE NEXT SHIFT NURSE FOR CONTINUING PT CARE.
[2022-09-16 06:52] LABS: BASOPHILS # (AUTO) 0.1 K/uL (0.0-0.2); BASOPHILS % (AUTO) 0.6 % (0.0-2.0); EOSINOPHILS % (AUTO) 2.7 % (0.0-6.0); HEMATOCRIT 29 % (33-45); HEMOGLOBIN 9.3 g/dL (11.5-14.8); LYMPHOCYTES # (AUTO) 1.6 K/uL (0.8-4.8); LYMPHOCYTES % (AUTO) 19.3 % (20.0-44.0); MEAN CORPUSCULAR HGB CONC 32 g/dl (31.0-36.0); MEAN CORPUSCULAR VOLUME 93 fL (82-100); MONOCYTES # (AUTO) 0.7 K/uL (0.1-1.30); MONOCYTES % (AUTO) 8.7 % (2.0-12.0); NEUTROPHILS # (AUTO) 5.7 K/uL (1.8-8.9); NEUTROPHILS % (AUTO) 68.7 % (43.0-81.0); PLATELET COUNT (AUTO) 263 K/uL (150-450); RED BLOOD CELL COUNT(AUTO) 3.16 MIL/uL (4.0-5.2); WHITE BLOOD COUNT (AUTO) 8.4 K/uL (4.3-11.0)
--- NOTE | 2022-09-16 07:16 | NUR ---
CHIEF ORTHOPTIST OPENING NOTE RECEIVED PATIENT ON BED WITH SPONTANEOUS EYE OPENIGN TO CALL / TOUCH, NON-VERBAL, OBTUNDED. PT IS ON O2 AT 3 L/MIN VIA NASAL CANULA, TOLERATING WELL. NO SOB NOTED. NOT IN ANY SIGN OF RESPIRATORY DISTRESS. ON TELE FOOD EDITOR WITH CURRENT READING OF SINUS TACHYCARDIA AT 111BPM. WITH IV ACCESS ON ROXANN MIDLINE WITH D5W INFUSING AT 30ML/HR. WITH GTUBE IN PLACE WITH FEEDING INFUSING AT 30 MLS/HR. SAFETY MEASURES IN PLACE: BED IN LOWEST AND LOCKED POSITION, KEPT HOB ELEVATED AT ALL TIMES, SIDE RAILS UP X2, AND CALL LIGHT WITHIN REACH. WILL CONTINUE WITH PLAN OF CARE.
[2022-09-16 07:18] LABS: CALCIUM, SERUM 8.5 mg/dL (8.5-10.1); CREATININE 1.1 mg/dL (0.6-1.3); POTASSIUM 3.7 mmol/L (3.5-5.1)
[2022-09-16 08:00] VITALS: BP 128/50
[2022-09-16] MEDS ORDERED: LACTULOSE 10 G/15 ML UDC (PYXIS) GT PRN (09:00)
[2022-09-16] MEDS: DOCUSATE SODIUM LIQ 100 MG/10 ML UDC GT SCH ×2 (11:13→16:35)
[2022-09-16] MEDS ORDERED: NA PHOS,M-B/NA PHOS,DI-BA 1 EA ENEMA RC ONE (14:00)
[2022-09-16 16:08] VITALS: BP 102/66
[2022-09-16] MEDS: IV D5W 1,000 ML IV PRN (18:56)
--- NOTE | 2022-09-16 19:10 | NUR ---
DIAMOND EXPERT CLOSING NOTE PATIENT ON BED WITH OPENS EYES TO CALL / TOUCH, NON-VERBAL, OBTUNDED. PT IS ON O2 AT 3 L/MIN VIA NASAL CANULA, TOLERATING WELL. NO SOB NOTED. NOT IN ANY SIGN OF RESPIRATORY DISTRESS. ON TELE GRIEVANCE COORDINATOR WITH CURRENT READING OF SINUS TACHYCARDIA AT 111BPM. WITH IV ACCESS ON ROXANN MIDLINE WITH D5W INFUSING AT 30ML/HR. WITH GTUBE IN PLACE WITH FEEDING INFUSING AT 60 MLS/HR. SAFETY MEASURES IN PLACE: BED IN LOWEST AND LOCKED POSITION, KEPT HOB ELEVATED AT ALL TIMES, SIDE RAILS UP X2, AND CALL LIGHT WITHIN REACH. WILL ENDORSE TO NEXT SHIFT FOR CONTINUITY CARE.
--- NOTE | 2022-09-16 19:30 | NUR ---
RN Opening Notes Received pt in bed, with eyes closed. Obtunded. On NC 3LPM and tolerating well. No SOB noted. No s/sx of respiratory distress noted. Tele monitor detects sinus tachycardia. IV access in ROXANN Midline running D5W @ 30 ml/hr. Safety precautions in place: bed in lowest, locked position, siderails upX2, and brakes on. Table and call light within within reach. All needs met at this time.
[2022-09-16 20:00] VITALS: BP 105/70
[2022-09-17] VITALS: BP 106/54
[2022-09-17] MEDS: METOCLOPRAMIDE HCL 10 MG/2 ML VIAL IV SCH ×4 (00:13→17:07)
[2022-09-17] MEDS: BLOOD SUGAR DIAGNOSTIC 1 EACH STRIP IN SCH ×4 (00:28→17:14)
[2022-09-17] MEDS: INSULIN REGULAR, HUMAN 100 UNIT/ML 3 ML VIAL SQ PRN ×2 (00:29→06:51)
[2022-09-17 04:00] VITALS: BP 105/68
[2022-09-17] MEDS: MEROPENEM 1 G in IV NS 0.9% 100 ML IV SCH ×3 (04:36→20:27)
[2022-09-17 06:43] LABS: POTASSIUM 3.5 mmol/L (3.5-5.1)
[2022-09-17 06:44] LABS: CALCIUM, SERUM 8.8 mg/dL (8.5-10.1); CREATININE 1.1 mg/dL (0.6-1.3)
--- NOTE | 2022-09-17 06:59 | NUR ---
RN Closing Notes Pt in bed, with eyes closed. Eyes open to verbal and tactile stimuli. On NC 3LPM and tolerating well. No SOB noted. No s/sx of respiratory distress noted. Tele monitor detects sinus tachycardia. IV access in ROXANN Midline running D5W @ 30 ml/hr. All orders carried out. All needs met. Pt kept clean and dry. Safety precautions in place: bed in lowest, locked position, siderails upX2, and brakes on. Table and call light within within reach. Will endorse to oncoming shift for NIKKO.
--- NOTE | 2022-09-17 07:30 | NUR ---
SORT LINE WORKER NOTES PT IN BED, ASLEEP, EASY TO AROUSE, NON VERBAL, NO SIGN OF PAIN OR DISTRESS, GT FEEDING INFUSING WELL, PM CARE PROVIDED, FLEET ENEMA GIVEN TODAY, WITH SMALL BM NOTED, TURNED AND REPOSITIONED FOR COMFORT, KEPT STICK PULLER BED.
[2022-09-17 08:19] VITALS: BP 114/59
[2022-09-17] MEDS: DOCUSATE SODIUM LIQ 100 MG/10 ML UDC GT SCH ×2 (08:35→17:07)
[2022-09-17] MEDS ORDERED: NA PHOS,M-B/NA PHOS,DI-BA 1 EA ENEMA RC ONE (10:30)
[2022-09-17] MEDS: GLUCERNA 1.2 1,000 ML BOTTLE NG PRN (12:16)
[2022-09-17 16:00] VITALS: BP 119/65
[2022-09-17 20:00] VITALS: BP 113/70
--- NOTE | 2022-09-17 20:00 | NUR ---
CABINETMAKER SUPERVISOR NOTES ST [address] ON TELE MONITOR.RECEIVED ON BED,ON LEFT SIDE POSITION,OPEN EYES NON VERBAL.PUREWICK IN PLACE DRAINS CLEAR YELLOW OUTPUT.PRESENT IVF D5W AT 30ML/HR ATE INFUSING WELL ON RIGHT UPPER ARM MIDLINE VIA IV PUMP.WITH GT FEEDING OF GLUCERNA AT 60ML/HR RATE INFUSING VIA FEEDING PUMP,NO RESIDUAL VOLUME NOTED.HOB ELEVATED FOR ASPIRATION PRECAUTION.WILL REPOSITION Q 2 HOURS PER PROTOCOL.WILL CONTINUE TO MONITOR STATUS.
[2022-09-17 21:16] VITALS: BP 113/70
[2022-09-18] VITALS: BP 126/68
--- NOTE | 2022-09-18 01:30 | NUR ---
CYBER INSTRUCTOR NOTES ACCU-CHECK BLOOD SUGAR CHECK 106MG/DL,NO INSULIN COVERAGE,GR FEEDING IN PROGRESS.
[2022-09-18] MEDS: BLOOD SUGAR DIAGNOSTIC 1 EACH STRIP IN SCH ×3 (01:50→13:08)
[2022-09-18] MEDS: METOCLOPRAMIDE HCL 10 MG/2 ML VIAL IV SCH ×3 (01:51→13:09)
[2022-09-18 04:00] VITALS: BP 110/60
[2022-09-18] MEDS: MEROPENEM 1 G in IV NS 0.9% 100 ML IV SCH ×2 (04:51→13:10)
--- NOTE | 2022-09-18 05:30 | NUR ---
CUSTODIAL ENGINEER NOTES ACCU-CHECK BLOOD SUGAR CHECK 109MG/DL/NO INSULIN COVERAGE.
[2022-09-18] MEDS: IV D5W 1,000 ML IV PRN (06:05)
--- NOTE | 2022-09-18 06:30 | NUR ---
SENIOR PRINCIPAL NOTES ON BED WITH HEAD ON BED ELEVATED,BREATHING NON LABORED,GT FEEDING IN PROGRESS,TOLERATED WELL,NO RESIDUAL VOLUME.REPOSITIONED PER PROTOCOL.BLOOD SUGAR WITH IN NORMAL LIMITS.IN NO ACUTE DISTRESS.FULL CODE.
--- NOTE | 2022-09-18 07:30 | NUR ---
CHARGE NURSE NOTES PT IN BED, ASLEEP, EASY TO AROUSE, OPENS EYES, NON VERBAL, NO FACIAL GRIMACING, NOT IN DISTRESS, GT FEEDING INFUSING WELL, KEPT WARM AND COMFORTABLE IN BED.
[2022-09-18 08:03] VITALS: BP 102/60
[2022-09-18] MEDS: DOCUSATE SODIUM LIQ 100 MG/10 ML UDC GT SCH (08:38)
[2022-09-18] MEDS ORDERED: MERO1VIA23 IV (09:42)
[2022-09-18 12:06] VITALS: BP 110/60
--- NOTE | 2022-09-18 15:30 | NUR ---
LAST MODEL DEPARTMENT SUPERVISOR NOTES PT IN BED, AWAKE, NON VERBAL, NO SIGN OF PAIN OR DISTRESS, TOLERATES GT FEEDING WELL, DISCHARGE ORDER GIVEN BY DR. STEVENS, PT'S MOM INFORMED OF DISCHARGE, VERBALIZED UNDERSTANDING, PT HAS NO BELONGINGS, CALLED MERGED WITH [facility] SEVERAL TIMES TO GIVE REPORT BUT NOBODY IS PICKING UP THE PHONE, STRAW HAT BRIM CUTTER OPERATOR INFORMED, REPORT GIVEN TO 2 AMBULANCE PERSONNEL, PER CM, MERGED WITH [facility] WILL RECEIVE PT AND WILL CALL TO RECEIVE REPORT, PT LEFT VIA GUERNEY IN STABLE CONDITION.
--- NOTE | 2022-09-18 15:55 | NUR ---
TERRAZZO WORKER NOTES RECEIVED CALL FROM MELCHOR MENESES OF [facility], PATIENT REPORT AND DISCHARGE INSTRUCTIONS GIVEN.
== END 2022-09-18 15:20 | DRG 720 ==
LOC: ER 09-11 00:10 → TELE 09-11 03:18
PROVIDERS: ADMIT Nurse Practitioner Acute Care; ATTEND Nurse Practitioner Acute Care
PROC: 05H933Z Insertion of Infusion Device into Right Brachial Vein, Percutaneous Approach (ICD-10-PCS; principal; 2022-09-11)
DX: A41.1 Sepsis due to other specified staphylococcus (principal); N17.0 Acute kidney failure with tubular necrosis; R65.21 Severe sepsis with septic shock; G82.50 Quadriplegia, unspecified; G93.41 Metabolic encephalopathy; E87.20 Acidosis, unspecified; D68.59 Other primary thrombophilia; E87.0 Hyperosmolality and hypernatremia; G11.4 Hereditary spastic paraplegia; N39.0 Urinary tract infection, site not specified; Z20.822 Contact with and (suspected) exposure to COVID-19; R13.10 Dysphagia, unspecified; E11.9 Type 2 diabetes mellitus without complications; F32.9 Major depressive disorder, single episode, unspecified; Z86.16 Personal history of COVID-19; Z79.899 Other long term (current) drug therapy; B96.89 Other specified bacterial agents as the cause of diseases classified elsewhere; Z93.1 Gastrostomy status; Z74.09 Other reduced mobility; Z87.440 Personal history of urinary (tract) infections; E87.6 Hypokalemia; K59.00 Constipation, unspecified; N20.0 Calculus of kidney; Z16.24 Resistance to multiple antibiotics; D64.9 Anemia, unspecified; B96.20 Unspecified Escherichia coli [E. coli] as the cause of diseases classified elsewhere; S51.001A Unspecified open wound of right elbow, initial encounter; X58.XXXA Exposure to other specified factors, initial encounter; Y92.129 Unspecified place in nursing home as the place of occurrence of the external cause; L53.9 Erythematous condition, unspecified
CPT/HCPCS: 36410; 36415; 71045-TC; 71250-TC; 80048-TC; 80076-TC; 80202-TC; 81001; 82962-TC; 83605-TC; 83735-TC; 83880; 84100-TC; 84484-TC; 84703-TC; 85025-TC; 85730-TC; 87040-TC; 87081-TC; 87086-TC; 97110-TC; 97530-TC; A4223; C9803; G0378; J0696; J1815; J2185; J2543; J2765; J3370; J3490; J7030; J7040; J7042; J7050; J7060; J7070

== ENCOUNTER 2023-08-11 19:54 | Emergency (ER) | payer OTHER ==
[~2023-08-11] VITALS: Ht 172.7 cm; Wt 68.9 kg
[~2023-08-11 19:54] MED LIST: ACET-868 GT; BACL10TA GT; CHOL100040 GT; DOCU100C36 GT; MERO1VIA23 IV; MULT-447 GT; NUTR150016 GT; PREG50CA GT; PROM118S5 GT; SENN-261 GT; VIT500LI GT
[2023-08-11 19:57] VITALS: BP 110/68; TEMP 98.3; O2SAT 96
== END 2023-08-11 22:17 ==
LOC: ER 19:57
DX: S00.81XA Abrasion of other part of head, initial encounter (principal); R51.9 Headache, unspecified; M54.2 Cervicalgia; E11.9 Type 2 diabetes mellitus without complications; F32.9 Major depressive disorder, single episode, unspecified; Z86.16 Personal history of COVID-19; Z79.899 Other long term (current) drug therapy; W18.30XA Fall on same level, unspecified, initial encounter; Y93.89 Activity, other specified; Y92.89 Other specified places as the place of occurrence of the external cause; Y99.8 Other external cause status
CPT/HCPCS: 70450-TC; 70486-TC; 72125-TC

== ENCOUNTER 2023-09-17 00:51 | Emergency (ER) | payer OTHER ==
[~2023-09-17] VITALS: Ht 165.1 cm; Wt 64.0 kg
[2023-09-17 01:27] VITALS: BP 101/75; TEMP 98.7; O2SAT 98
[2023-09-17] MEDS ORDERED: DIATR MEGLU/DIATRIZOATE SODIUM 30 ML BOTTLE (GASTROGRAPHIN) ONE (02:01)
== END 2023-09-17 05:16 ==
LOC: ER 00:58
DX: K94.23 Gastrostomy malfunction (principal); E11.9 Type 2 diabetes mellitus without complications; F32.9 Major depressive disorder, single episode, unspecified; Z86.16 Personal history of COVID-19; Z79.899 Other long term (current) drug therapy
CPT/HCPCS: 99284; 43762; 74018; Q9963